=== PATIENT | female | born 1985 | race Two or more races ===

== ENCOUNTER 2023-11-08 18:54 | Emergency (ER) | payer MEDICAID ==
[~2023-11-08] VITALS: Ht 162.6 cm; Wt 81.4 kg
[2023-11-08 18:55] VITALS: TEMP 97.7
[2023-11-08] MEDS ORDERED: ASPI-1192 PO (18:59)
[2023-11-08] MEDS ORDERED: IBUP-1492 PO (22:39)
[2023-11-08] MEDS ORDERED: ONDA-104 PO (22:39)
[2023-11-08] MEDS: ONDANSETRON HCL 4 MG/2 ML VIAL IM ONE (22:43)
[2023-11-08] MEDS: KETOROLAC TROMETHAMINE 30 MG/ML VIAL IM ONE (22:44)
[2023-11-08 23:04] VITALS: BP 117/64; PULSE 74; RESP 18
== END 2023-11-08 23:04 | disposition home or self-care (01) ==
LOC: EMS 18:59
DX: G43.909 Migraine, unspecified, not intractable, without status migrainosus (principal)
CPT/HCPCS: 99284; 96372; J1885; J2405

== ENCOUNTER 2024-10-19 18:23 | Emergency (ER) | payer SELFPAY ==
[~2024-10-19] VITALS: Ht 165.1 cm; Wt 75.0 kg
[~2024-10-19 18:23] MED LIST: ASPI-1192 PO; IBUP-1492 PO; ONDA-104 PO
[2024-10-19] MEDS ORDERED: PRED-554 PO (18:59)
[2024-10-19] MEDS ORDERED: DIPH-1243 PO (18:59)
[2024-10-19] MEDS: PredniSONE 20 MG TABLET PO ONE (19:10)
[2024-10-19] MEDS: DiphenhydrAMINE HCL 25 MG CAPSULE PO ONE (19:10)
[2024-10-19 19:27] VITALS: BP 129/69; PULSE 78; RESP 18; TEMP 97.9; O2SAT 100
== END 2024-10-19 19:33 | disposition home or self-care (01) ==
LOC: EMS 18:23
DX: T78.1XXA Other adverse food reactions, not elsewhere classified, initial encounter (principal); X58.XXXA Exposure to other specified factors, initial encounter
CPT/HCPCS: 99283; J7512